=== PATIENT | female | born 1990 | race American Indian/Alaskan Native ===

== ENCOUNTER 2019-01-23 08:17 | Emergency (ER) | payer OTHER ==
[2019-01-23 08:28] VITALS: BP 148/85
--- NOTE | 2019-01-23 08:53 | Emergency Department Report ---
ED Female HPI - General Chief complaint: Urogenital-Female Stated complaint: DISCOMFORT Time Seen by Provider: 01/23/19 08:45 Source: patient Mode of arrival: Ambulatory Limitations: No Limitations - History of Present Illness Initial comments: This is a 28-year-old female nontoxic, well nourished in appearance, no acute signs of distress presents to the ED with c/o of vaginal itching and irritation. Patient denies any vaginal discharge. Patient stated she currently gets yeast infections when she is on different progesterones and hormonal therapy. Patient stated that this is typical symptoms for her. Patient denies any vaginal pain or swelling. Patient denies any vaginal ulcers or lesions. Patient denies any nausea, vomiting, chest pain, shortness of breathe, fever, chills, headache, back pain, numbness, tingling, stiff neck. Patient denies any urinary symptoms. Patient stated allergies to PCN. MD Complaint: other (vaginal itching and irritation) Radiation: non-radiating Severity scale (0 -10): 0 Consistency: constant Improves with: none Worsens with: none Associated Symptoms: denies other symptoms. denies: vaginal discharge, vaginal bleeding, abdominal pain, nausea/vomiting, fever/chills, headaches, loss of appetite, dysuria, hematuria, rash, seizure, shortness of breath, syncope, weakness - Related Data Previous Rx's Medication Instructions Recorded Last Taken Type Fluconazole [Diflucan TAB] 150 mg PO ONCE #1 tablet 01/23/19 Unknown Rx metroNIDAZOLE [Flagyl] 500 mg PO Q12HR #14 tab 01/23/19 Unknown Rx Allergies Allergy/AdvReac Type Severity Reaction Status Date / Time Penicillins Allergy Unknown Verified 01/23/19 08:20 ED Review of Systems ROS: Stated complaint: DISCOMFORT Other details as noted in HPI Constitutional: denies: chills, fever Eyes: denies: eye pain, eye discharge, vision change ENT: denies: ear pain, throat pain Respiratory: denies: cough, shortness of breath, wheezing Cardiovascular: denies: chest pain, palpitations Endocrine: no symptoms reported Gastrointestinal: denies: abdominal pain, nausea, diarrhea Genitourinary: denies: urgency, dysuria, discharge Musculoskeletal: denies: back pain, joint swelling, arthralgia Skin: denies: rash, lesions Neurological: denies: headache, weakness, paresthesias Psychiatric: denies: anxiety, depression Hematological/Lymphatic: denies: easy bleeding, easy bruising ED Past Medical Hx - Past Medical History Previous Medical History?: Yes Additional medical history: Abnormal uterine bleeding. - Surgical History Past Surgical History?: Yes Additional Surgical History: C section - Social History Smoking Status: Never Smoker Substance Use Type: None - Medications Home Medications: Home Medications Medication Instructions Recorded Confirmed Last Taken Type Fluconazole [Diflucan TAB] 150 mg PO ONCE #1 tablet 01/23/19 Unknown Rx metroNIDAZOLE [Flagyl] 500 mg PO Q12HR #14 tab 01/23/19 Unknown Rx ED Physical Exam - General Limitations: No Limitations - GI/Abdominal GI/Abdominal exam: Present: soft, normal bowel sounds. Absent: distended, tenderness, guarding, rebound, rigid, diminished bowel sounds - Extremities Exam Extremities exam: Present: normal inspection, full ROM - Back Exam Back exam: Present: normal inspection, full ROM - Neurological Exam Neurological exam: Present: alert, oriented X3 - Psychiatric Psychiatric exam: Present: normal affect, normal mood - Skin Skin exam: Present: warm, dry, intact, normal color. Absent: rash ED Course Vital Signs 01/23/19 08:26 Temperature 98.6 F Pulse Rate 77 Respiratory 16 Rate Blood Pressure 148/85 O2 Sat by Pulse 99 Oximetry - Reevaluation(s) Reevaluation #1: 01/23/19 08:51 Patient is speaking in full sentences with no signs of distress noted. ED Medical Decision Making - Medical Decision Making This is a 28-year-old female that presents with vaginal yeast. Patient is stable was examined by me. There is no abdominal tenderness. No pelvic pain. UA obtained. Patient was instructed to Follow-up with a primary care doctor in 3-5 days or if symptoms worsen and continue return to emergency room as soon as possible. At time of discharge, the patient does not seem toxic or ill in appearance. No acute signs of distress noted. Patient agrees to discharge treatment plan of care. No further questions noted by the patient. Critical care attestation.: If time is entered above; I have spent that time in minutes in the direct care of this critically ill patient, excluding procedure time. ED Disposition Clinical Impression: Vaginal yeast infection Disposition: - TO HOME OR SELFCARE Is pt being admited?: No Does the pt Need Aspirin: No Condition: Stable Instructions: Metronidazole (By mouth), Vulvovaginal Candidiasis (ED) Additional Instructions: Follow-up with a primary care doctor in 3-5 days or if symptoms worsen and continue return to emergency room as soon as possible. Prescriptions: Fluconazole [Diflucan TAB] 150 mg PO ONCE #1 tablet metroNIDAZOLE [Flagyl] 500 mg PO Q12HR #14 tab Referrals: PRIMARY CARE, [Referring] - 3-5 Days MARIA VICTORIA DANIELSON MD [Staff Physician] - 3-5 Days [facility] [Outside] - 3-5 Days [facility] [Outside] - 3-5 Days Forms: Work/School Release Form(ED)
[2019-01-23 09:15] LABS: Bilirubin,Urine NEG (Negative); Blood,Urine NEG (Negative); Color,Urine Yellow (Yellow); HCG Qualitative,Urine Negative (Negative); Mucus,Urine FEW /HPF; Protein,Urine <15 mg/dL mg/dL (Negative); Urobilinogen,Urine < 2.0 mg/dL (<2.0); WBC,Urine < 1.0 /HPF (0.0-6.0)
== END 2019-01-23 09:23 | disposition home or self-care (01) ==
LOC: ED 08:17
DX: B37.3 Candidiasis of vulva and vagina (principal); Z88.0 Allergy status to penicillin
CPT/HCPCS: 81001; 81025; 99283

== ENCOUNTER 2019-05-02 10:41 | Emergency (ER) | payer OTHER ==
[2019-05-02 11:01] VITALS: BP 138/83
[2019-05-02 12:12] LABS: Bilirubin,Urine NEG (Negative); Blood,Urine LG (Negative); Color,Urine Straw (Yellow); Protein,Urine <15 mg/dL mg/dL (Negative); Urobilinogen,Urine < 2.0 mg/dL (<2.0)
--- NOTE | 2019-05-02 12:35 | Emergency Department Report ---
ED Dysuria HPI - HPI Chief Complaint: Vaginal Bleeding Stated Complaint: VAGINAL BLEEDING Time Seen by Provider: 05/02/19 12:17 Severity: Mild Symptoms: Dysuria: No, Frequency: No, Suprapubic Pain: No, Flank Pain: No, Fev er: No, Hematuria: No, Abdominal Pain: No, Previous UTI's: No Other History: pT is a 28-year-old who comes to the ER today for acute on chronic dysfunctional vaginal bleeding. She was unable to get in with her [facility] so she came here for her Provera. She also has a history of anemia and she states when the bleeding is too heavy she gets symptomatic anemia. She denies any chest pain or shortness of breath. Vital signs are stable. She is taking no home medications. ED Review of Systems ROS: Stated complaint: VAGINAL BLEEDING Other details as noted in HPI Comment: All other systems reviewed and negative ED Past Medical Hx - Past Medical History Previous Medical History?: Yes Additional medical history: Abnormal uterine bleeding. - Surgical History Past Surgical History?: Yes Additional Surgical History: C section - Family History Family history: no significant - Social History Smoking Status: Never Smoker Substance Use Type: None - Medications Home Medications: Home Medications Medication Instructions Recorded Confirmed Last Taken Type Fluconazole [Diflucan TAB] 150 mg PO ONCE #1 tablet 01/23/19 Unknown Rx metroNIDAZOLE [Flagyl] 500 mg PO Q12HR #14 tab 01/23/19 Unknown Rx Cyclobenzaprine [Flexeril] 10 mg PO QHS PRN #20 tablet 03/28/19 Unknown Rx Ibuprofen [Motrin] 800 mg PO Q8HR #30 tablet 03/28/19 Unknown Rx medroxyPROGESTERone ACETATE 20 mg PO QDAY #20 tablet 05/02/19 Unknown Rx [Provera] Dysuria Exam - Exam General: Vital signs noted. No distress. Alert and acting appropriately. Exam: Yes Moist Mucous Membranes, No CVA Tenderness, No Abdominal Tenderness, No Rigidity or Guarding Exam: WDWN patient in NAD. VS per RN flow sheet. Alert and oriented to person, place and time. S1-S2. No S3 or S4. No systolic or diastolic murmur. No JVD. No pitting edema. Lungs clear to auscultation bilaterally anteriorly and posteriorly. Abdomen soft nontender bowel sounds X4. Moves all extremities well. Mood and affect appropriate. Labs: Lab Results 05/02/19 Range/Units Unknown Urine Color Straw (Yellow) Urine Turbidity Clear (Clear) Urine pH 6.0 (5.0-7.0) Ur Specific Baldwin 1.011 (1.003-1.030) Urine Protein <15 mg/dl (Negative) mg/dL Urine Glucose (UA) Neg (Negative) mg/dL Urine Ketones Neg (Negative) mg/dL Urine Blood Lg (Negative) Urine Nitrite Neg (Negative) Urine Bilirubin Neg (Negative) Urine Urobilinogen < 2.0 (<2.0) mg/dL Ur Leukocyte Esterase Neg (Negative) Urine WBC (Auto) 3.0 (0.0-6.0) /HPF Urine RBC (Auto) 72.0 (0.0-6.0) /HPF U Epithel Cells (Auto) < 1.0 (0-13.0) /HPF ED Course Vital Signs 05/02/19 10:59 Temperature 97.9 F Pulse Rate 106 H Respiratory 18 Rate Blood Pressure 138/83 [Left] O2 Sat by Pulse 98 Oximetry ED Medical Decision Making - Lab Data Result diagrams: 05/02/19 12:19 05/02/19 12:19 - Medical Decision Making Lab Results 05/02/19 05/02/19 05/02/19 Range/Units 12:19 12:19 Unknown WBC 8.0 (4.5-11.0) K/mm3 RBC 3.98 (3.65-5.03) M/mm3 Hgb 9.6 L (10.1-14.3) gm/dl Hct 30.1 L (30.3-42.9) % MCV 76 L (79-97) fl MCH 24 L (28-32) pg MCHC 32 (30-34) % RDW 21.0 H (13.2-15.2) % Plt Count 294 (140-440) K/mm3 Sodium 137 (137-145) mmol/L Potassium 3.8 (3.6-5.0) mmol/L Chloride 101.3 (98-107) mmol/L Carbon Dioxide 25 (22-30) mmol/L Anion Gap 15 mmol/L BUN 8 (7-17) mg/dL Creatinine 0.9 (0.7-1.2) mg/dL Estimated GFR > 60 ml/min BUN/Creatinine Ratio 9 % Glucose 78 (65-100) mg/dL Calcium 8.6 (8.4-10.2) mg/dL Urine Color Straw (Yellow) Urine Turbidity Clear (Clear) Urine pH 6.0 (5.0-7.0) Ur Specific Baldwin 1.011 (1.003-1.030) Urine Protein <15 mg/dl (Negative) mg/dL Urine Glucose (UA) Neg (Negative) mg/dL Urine Ketones Neg (Negative) mg/dL Urine Blood Lg (Negative) Urine Nitrite Neg (Negative) Urine Bilirubin Neg (Negative) Urine Urobilinogen < 2.0 (<2.0) mg/dL Ur Leukocyte Esterase Neg (Negative) Urine WBC (Auto) 3.0 (0.0-6.0) /HPF Urine RBC (Auto) 72.0 (0.0-6.0) /HPF U Epithel Cells (Auto) < 1.0 (0-13.0) /HPF Vital Signs 05/02/19 10:59 Temperature 97.9 F Pulse Rate 106 H Respiratory 18 Rate Blood Pressure 138/83 [Left] O2 Sat by Pulse 98 Oximetry CBC HGB STABLE HR ON EXAM 90 BP NORMAL A/C CONDITION PT KNOWS HER DOSE OF PROVERA FOR SHE HAS HAD IN THE PAST. RX FOR 10 DAYS. DC HOME WITH DC PLAN OF CARE AND OBGYN FOLLOW UP. Critical care attestation.: If time is entered above; I have spent that time in minutes in the direct care of this critically ill patient, excluding procedure time. ED Disposition Clinical Impression: DUB (dysfunctional uterine bleeding) Disposition: DC-01 TO HOME OR SELFCARE Is pt being admited?: No Does the pt Need Aspirin: No Condition: Stable Instructions: Menorrhagia (ED) Additional Instructions: DIET TOLERATED MEDS ORDERED TODAY IN ER FOLLOW INSTRUCTIONS ON THE BOTTLE FOLLOW UP WITH OBGYN FOR FURTHER EVALUATION OF YOUR BLEEDING ACTIVITY TOLERATED MOTRIN OR TYLENOL FOR PAIN OR FEVER RETURN TO THE ER FOR WORSENING SYMPTOMS NOT RELIEVED BY YOUR MEDICATIONS. Prescriptions: medroxyPROGESTERone ACETATE [Provera] 20 mg PO QDAY #20 tablet Referrals: JENNIFER GARCIA MD [Staff Physician] - 3-5 Days Time of Disposition: 13:16
[2019-05-02 12:42] LABS: Hematocrit 30.1 % (30.3-42.9); Hemoglobin 9.6 gm/dl (10.1-14.3); Mean Corpuscular HGB Conc 32 % (30-34); Mean Corpuscular Volume 76 fl (79-97); Platelet Count 294 K/mm3 (140-440); Red Blood Count 3.98 M/mm3 (3.65-5.03)
[2019-05-02 12:54] LABS: BUN/Creatinine Ratio 9; Blood Urea Nitrogen 8 mg/dL (7-17); Calcium 8.6 mg/dL (8.4-10.2); Hemolysis Index 6
== END 2019-05-02 13:30 | disposition home or self-care (01) ==
LOC: ED 10:41
DX: N93.8 Other specified abnormal uterine and vaginal bleeding (principal); Z88.0 Allergy status to penicillin
CPT/HCPCS: 36415; 80048; 81001; 85027

== ENCOUNTER 2019-05-22 05:52 | Emergency (ER) | payer MEDICAID, OTHER ==
[2019-05-22 07:15] LABS: Basophils # (Auto) 0.1 K/mm3 (0.0-0.1); Eosinophils # (Auto) 0.3 K/mm3 (0.0-0.4); Eosinophils % (Auto) 3.3 % (0.0-4.3); Hematocrit 28.5 % (30.3-42.9); Hemoglobin 9.1 gm/dl (10.1-14.3); Lymphocytes # (Auto) 1.9 K/mm3 (1.2-5.4); Lymphocytes % (Auto) 25.4 % (13.4-35.0); Mean Corpuscular HGB Conc 32 % (30-34); Mean Corpuscular Volume 76 fl (79-97); Monocytes # (Auto) 0.7 K/mm3 (0.0-0.8); Monocytes % (Auto) 9.2 % (0.0-7.3); Platelet Count 313 K/mm3 (140-440); Red Blood Count 3.78 M/mm3 (3.65-5.03); Red Cell Distribution Width 19.4 % (13.2-15.2)
[2019-05-22] MEDS ORDERED: TORADOL IM ONE (07:36)
--- NOTE | 2019-05-22 07:40 | Emergency Department Report ---
ED Female HPI - General Chief complaint: Vaginal Bleeding Stated complaint: UTERINE BLEEDING/PAIN Time Seen by Provider: 05/22/19 07:08 Source: patient Mode of arrival: Ambulatory Limitations: No Limitations - History of Present Illness Initial comments: 28-year-old -Stateless female presents to the emergency room for uterine bleeding and pain for 1 year as per patient. Patient reports the last few days pain has increased and bleeding has returned. Patient reports that she is approximately 8 tampons and a day and reports she used 4 tampons today. Patient reports that her last period was 05/15/2019. Patient was seen here for the same complaint in 05/02/2019 and was referred to Dr. Sweeney [facility] provider. Patient reports that she never followed up as she does not have insurance. Patient complains of pelvic cramping. She denies any nausea vomiting no fevers no chills no shortness of breath or chest pain. She does have a past medical history of anemia and dysfunctional uterine bleeding. MD Complaint: vaginal bleeding, pelvic pain Onset/Timin -: year(s) Location: suprapubic Severity scale (0 -10): 8 Quality: cramping Consistency: intermittent Improves with: none Worsens with: none Are you Now?: No Last Menstrual Period: 05/15/19 EDC: 02/19/20 - Related Data Previous Rx's Medication Instructions Recorded Last Taken Type Fluconazole [Diflucan TAB] 150 mg PO ONCE #1 tablet 01/23/19 Unknown Rx metroNIDAZOLE [Flagyl] 500 mg PO Q12HR #14 tab 01/23/19 Unknown Rx Cyclobenzaprine [Flexeril] 10 mg PO QHS PRN #20 tablet 03/28/19 Unknown Rx medroxyPROGESTERone ACETATE 20 mg PO QDAY #20 tablet 05/02/19 Unknown Rx [Provera] Ibuprofen [Motrin 800 MG tab] 800 mg PO Q8HR #30 tablet 05/22/19 Unknown Rx medroxyPROGESTERone ACETATE 10 mg PO QDAY 10 Days #10 tablet 05/22/19 Unknown Rx [Provera] Allergies Allergy/AdvReac Type Severity Reaction Status Date / Time Penicillins Allergy Unknown Verified 03/28/19 13:33 ED Review of Systems ROS: Stated complaint: UTERINE BLEEDING/PAIN Other details as noted in HPI Comment: All other systems reviewed and negative ED Past Medical Hx - Past Medical History Previous Medical History?: Yes Additional medical history: Abnormal uterine bleeding. - Surgical History Past Surgical History?: Yes Additional Surgical History: C section - Social History Smoking Status: Never Smoker Substance Use Type: None - Medications Home Medications: Home Medications Medication Instructions Recorded Confirmed Last Taken Type Fluconazole [Diflucan TAB] 150 mg PO ONCE #1 tablet 01/23/19 Unknown Rx metroNIDAZOLE [Flagyl] 500 mg PO Q12HR #14 tab 01/23/19 Unknown Rx Cyclobenzaprine [Flexeril] 10 mg PO QHS PRN #20 tablet 03/28/19 Unknown Rx medroxyPROGESTERone ACETATE 20 mg PO QDAY #20 tablet 05/02/19 Unknown Rx [Provera] Ibuprofen [Motrin 800 MG tab] 800 mg PO Q8HR #30 tablet 05/22/19 Unknown Rx medroxyPROGESTERone ACETATE 10 mg PO QDAY 10 Days #10 tablet 05/22/19 Unknown Rx [Provera] ED Physical Exam - General Limitations: No Limitations General appearance: alert, in no apparent distress - Head Head exam: Present: atraumatic, normocephalic - Eye Eye exam: Present: normal appearance - ENT ENT exam: Present: mucous membranes moist - Neck Neck exam: Present: normal inspection - Respiratory Respiratory exam: Present: normal lung sounds bilaterally. Absent: respiratory distress - Cardiovascular Cardiovascular Exam: Present: regular rate, normal rhythm. Absent: systolic murmur, diastolic murmur, rubs, gallop - GI/Abdominal GI/Abdominal exam: Present: soft, normal bowel sounds - Extremities Exam Extremities exam: Present: normal inspection - Back Exam Back exam: Present: normal inspection - Neurological Exam Neurological exam: Present: alert, oriented X3 - Psychiatric Psychiatric exam: Present: normal affect, normal mood - Skin Skin exam: Present: warm, dry, intact, normal color. Absent: rash ED Course Vital Signs 05/22/19 06:00 Temperature 98.3 F Pulse Rate 88 Respiratory 18 Rate Blood Pressure 157/84 [Right] O2 Sat by Pulse 99 Oximetry ED Medical Decision Making - Lab Data Result diagrams: 05/22/19 06:58 05/22/19 06:58 - Radiology Data Radiology results: report reviewed Patient: KEVIN JENKINS MR#: [id number] : 1990 Acct:[id number] Age/Sex: 28 / F ADM Date: 05/22/19 Loc: ED Attending Dr: Ordering Physician: MAKI IYER Date of Service: 05/22/19 Procedure(s): US transvaginal Accession Number(s): [id number] cc: MAKI IYER ULTRASOUND PELVIC COMPLETE ULTRASOUND TRANSVAGINAL HISTORY: pelvic pain. TECHNIQUE: Grayscale transabdominal and transvaginal imaging with color Doppler interrogation. COMPARISON: None at this facility. FINDINGS: The uterus is anteverted. The uterus measures 9.5 x 4.7 x 5.1 cm. There is a hypoechoic area in the uterine fundus measuring 2.0 x 1.7 x 2.9 cm which may represent an intramural fibroid. The endometrial stripe is unremarkable measuring 7.1 mm. Normal cervix. The right ovary measures 2.8 x 1.6 x 2.4 cm. The left ovary measures 2.9 x 1.9 x 1.8 cm. Normal follicles are identified bilaterally. Color Doppler imaging demonstrates perfusion to both adnexa. No pelvic fluid collection. IMPRESSION: Probable fundal fibroid as described. Otherwise, unremarkable pelvic ultrasounds. Signer Name: Ernst Lyon Jr, MD Signed: 05/22/2019 8:57 AM Workstation Name: [id number] Transcribed By: TTR Dictated By: ERNST LYON JR, MD Electronically Authenticated By: ERNST LYON JR, MD Signed Date/Time: 05/22/19 0857 DD/ 0852 TD/TT: Critical care attestation.: If time is entered above; I have spent that time in minutes in the direct care of this critically ill patient, excluding procedure time. ED Disposition Clinical Impression: Dysfunctional uterine bleeding, Fibroids, intramural, Anemia Disposition: DC-01 TO HOME OR SELFCARE Is pt being admited?: No Does the pt Need Aspirin: No Condition: Stable Instructions: Dysfunctional Uterine Bleeding (ED), Uterine Fibroids (ED) Additional Instructions: Take medication as prescribed. It's very important for you to follow up with an [facility] provider I have listed several below for your convenience. Prescriptions: Ibuprofen [Motrin 800 MG tab] 800 mg PO Q8HR #30 tablet medroxyPROGESTERone ACETATE [Provera] 10 mg PO QDAY 10 Days #10 tablet Referrals: TABBY HARRISON MD [Primary Care Provider] - 3-5 Days [facility] [Provider Group] - 3-[address] [facility] [Provider Group] - 3-5 Days [facility] [Provider Group] - 3-[address] [facility] [Provider Group] - 3-5 Days Forms: Work/School Release Form(ED)
[2019-05-22 07:47] VITALS: BP 157/84
[2019-05-22 08:14] LABS: Alanine Aminotransferase 13 units/L (7-56); Albumin 3.4 g/dL (3.9-5); BUN/Creatinine Ratio 10; Blood Urea Nitrogen 8 mg/dL (7-17); Calcium 8.6 mg/dL (8.4-10.2); Hemolysis Index 14
--- NOTE | 2019-05-22 09:01 | Ultrasound Report ---
ULTRASOUND PELVIC COMPLETE ULTRASOUND TRANSVAGINAL HISTORY: pelvic pain. TECHNIQUE: Grayscale transabdominal and transvaginal imaging with color Doppler interrogation. COMPARISON: None at this facility. FINDINGS: The uterus is anteverted. The uterus measures 9.5 x 4.7 x 5.1 cm. There is a hypoechoic are a in the uterine fundus measuring 2.0 x 1.7 x 2.9 cm which may represent an intramural fibroid. The e ndometrial stripe is unremarkable measuring 7.1 mm. Normal cervix. The right ovary measures 2.8 x 1.6 x 2.4 cm. The left ovary measures 2.9 x 1.9 x 1.8 cm. Normal folli cles are identified bilaterally. Color Doppler imaging demonstrates perfusion to both adnexa. No pelvic fluid collection. IMPRESSION: Probable fundal fibroid as described. Otherwise, unremarkable pelvic ultrasounds. Signer Name: Ernst Lyon Jr, MD Signed: 05/22/2019 8:57 AM Workstation Name: [id number]
== END 2019-05-22 09:32 | disposition home or self-care (01) ==
LOC: ED 05:52
DX: N93.8 Other specified abnormal uterine and vaginal bleeding (principal); D25.1 Intramural leiomyoma of uterus; D64.9 Anemia, unspecified; Z79.899 Other long term (current) drug therapy; Z88.0 Allergy status to penicillin
CPT/HCPCS: 36415; 76830; 76856; 80053; 84703; 85025; 86900; 86901; 96372; 99284; J1885

== ENCOUNTER 2019-07-02 12:15 | Emergency (ER) | payer OTHER ==
--- NOTE | 2019-07-02 12:32 | Emergency Department Report ---
Blank Doc - Documentation Documentation: This is a 29-year-old female that presents with vaginal discharge with history of chronic yeast infections. This initial assessment/diagnostic orders/clinical plan/treatment(s) is/are subject to change based on patient's health status, clinical progression and re- assessment by fellow clinical providers in the ED. Further treatment and workup at subsequent clinical providers discretion. Patient/guardians urged not to elope from the ED as their condition may be serious if not clinically assessed and managed. Initial orders include: 1- Patient sent to [facility] for further evaluation and treatment 2- pelvic exam to be done
[2019-07-02 12:37] VITALS: BP 153/82
[2019-07-02 13:10] LABS: Bacteria,Urine 1+ /HPF (Negative); Bilirubin,Urine NEG (Negative); Blood,Urine NEG (Negative); Color,Urine Yellow (Yellow); Mucus,Urine FEW /HPF; Protein,Urine <15 mg/dL mg/dL (Negative); Urobilinogen,Urine < 2.0 mg/dL (<2.0)
[2019-07-02 13:12] LABS: HCG Qualitative,Urine Negative (Negative)
--- NOTE | 2019-07-02 13:42 | Emergency Department Report ---
ED Female HPI - General Chief complaint: Urogenital-Female Stated complaint: YEAST INFECTION Time Seen by Provider: 07/02/19 12:30 Source: patient Mode of arrival: Ambulatory Limitations: No Limitations - History of Present Illness Initial comments: Patient is 29 years old female with no significant past medical history. Patient presented to the ER complaining of vaginal discharge, whitish in nature, itchy. Patient stated that she had multiple history of yeast infection because she is taking progesterone. Patient stated that her symptoms is similar to what she had before for which she was cleared by Kuldeeplucanuradha. Denied any fever or chills. No pelvic pain. MD Complaint: vaginal discharge - Related Data Previous Rx's Medication Instructions Recorded Last Taken Type Fluconazole [Diflucan TAB] 150 mg PO ONCE #1 tablet 01/23/19 Unknown Rx metroNIDAZOLE [Flagyl] 500 mg PO Q12HR #14 tab 01/23/19 Unknown Rx Cyclobenzaprine [Flexeril] 10 mg PO QHS PRN #20 tablet 03/28/19 Unknown Rx medroxyPROGESTERone ACETATE 20 mg PO QDAY #20 tablet 05/02/19 Unknown Rx [Provera] Ibuprofen [Motrin 800 MG tab] 800 mg PO Q8HR #30 tablet 05/22/19 Unknown Rx medroxyPROGESTERone ACETATE 10 mg PO QDAY 10 Days #10 tablet 05/22/19 Unknown Rx [Provera] Allergies Allergy/AdvReac Type Severity Reaction Status Date / Time Penicillins Allergy Unknown Verified 03/28/19 13:33 ED Review of Systems ROS: Stated complaint: YEAST INFECTION Other details as noted in HPI Comment: All other systems reviewed and negative Constitutional: denies: chills, fever Respiratory: denies: cough, shortness of breath Cardiovascular: denies: chest pain ED Past Medical Hx - Past Medical History Previous Medical History?: Yes Additional medical history: Abnormal uterine bleeding. - Surgical History Past Surgical History?: Yes Additional Surgical History: C section x 2 - Social History Smoking Status: Never Smoker - Medications Home Medications: Home Medications Medication Instructions Recorded Confirmed Last Taken Type Fluconazole [Diflucan TAB] 150 mg PO ONCE #1 tablet 01/23/19 Unknown Rx metroNIDAZOLE [Flagyl] 500 mg PO Q12HR #14 tab 01/23/19 Unknown Rx Cyclobenzaprine [Flexeril] 10 mg PO QHS PRN #20 tablet 03/28/19 Unknown Rx medroxyPROGESTERone ACETATE 20 mg PO QDAY #20 tablet 05/02/19 Unknown Rx [Provera] Ibuprofen [Motrin 800 MG tab] 800 mg PO Q8HR #30 tablet 05/22/19 Unknown Rx medroxyPROGESTERone ACETATE 10 mg PO QDAY 10 Days #10 tablet 05/22/19 Unknown Rx [Provera] ED Physical Exam - General Limitations: No Limitations General appearance: alert, in no apparent distress - Head Head exam: Present: atraumatic, normocephalic, normal inspection - Eye Eye exam: Present: normal appearance, PERRL - ENT ENT exam: Present: normal exam, normal orophraynx, mucous membranes moist - Neck Neck exam: Present: normal inspection, full ROM. Absent: tenderness, meningismus, lymphadenopathy, thyromegaly - Respiratory Respiratory exam: Present: normal lung sounds bilaterally - Cardiovascular Cardiovascular Exam: Present: regular rate, normal rhythm, normal heart sounds - GI/Abdominal GI/Abdominal exam: Present: soft, normal bowel sounds. Absent: distended, tenderness, guarding, rebound, rigid, organomegaly, mass, bruit, pulsatile mass, hernia - Extremities Exam Extremities exam: Present: normal inspection, full ROM, normal capillary refill. Absent: pedal edema, calf tenderness - Back Exam Back exam: Present: normal inspection, full ROM. Absent: CVA tenderness (R), CVA tenderness (L), muscle spasm - Neurological Exam Neurological exam: Present: alert, oriented X3, CN II-XII intact, normal gait, reflexes normal - Psychiatric Psychiatric exam: Present: normal mood - Skin Skin exam: Present: warm, intact, normal color ED Course Vital Signs 07/02/19 12:31 Temperature 98.5 F Pulse Rate 85 Respiratory 18 Rate Blood Pressure 153/82 O2 Sat by Pulse 100 Oximetry Critical care attestation.: If time is entered above; I have spent that time in minutes in the direct care of this critically ill patient, excluding procedure time. ED Disposition Clinical Impression: Vaginal candidiasis Disposition: - TO HOME OR SELFCARE Is pt being admited?: No Condition: Stable Instructions: Vulvovaginal Candidiasis (ED) Referrals: TABBY HARRISON MD [Primary Care Provider] - 3-5 Days
== END 2019-07-02 13:56 | disposition home or self-care (01) ==
LOC: ED 12:15
DX: B37.3 Candidiasis of vulva and vagina (principal); Z88.0 Allergy status to penicillin
CPT/HCPCS: 81001; 81025

== ENCOUNTER 2019-12-25 07:43 | Emergency (ER) | payer SELFPAY ==
[2019-12-25 07:52] VITALS: BP 162/94
--- NOTE | 2019-12-25 08:37 | Emergency Department Report ---
HPI - General Chief Complaint: Vaginal Bleeding Time Seen by Provider: 12/25/19 08:17 - [facility] HPI: Room 17 The patient is a 29-year-old female present with a chief complaint of vaginal bleeding. Patient has a history of abnormal uterine bleeding and states for the past 3-5 weeks she has had daily vaginal bleeding. Patient states she is gone through 5 pads and 5 tampons daily. Patient admits to lower abdominal pain described as pelvic cramping. Patient states she does not have an [facility] yet. The patient states she came to the hospital to receive Provera or similar medication ED Past Medical Hx - Past Medical History Previous Medical History?: Yes Additional medical history: Abnormal uterine bleeding., Uterine fibroid - Surgical History Past Surgical History?: Yes Additional Surgical History: C section x 2 - Family History Family history: no significant - Social History Smoking Status: Never Smoker Substance Use Type: None (Denies illicit drug use), Alcohol (Occasional) - Medications Home Medications: Home Medications Medication Instructions Recorded Confirmed Last Taken Type Fluconazole [Diflucan TAB] 150 mg PO ONCE #1 tablet 01/23/19 Unknown Rx metroNIDAZOLE [Flagyl] 500 mg PO Q12HR #14 tab 01/23/19 Unknown Rx Cyclobenzaprine [Flexeril] 10 mg PO QHS PRN #20 tablet 03/28/19 Unknown Rx medroxyPROGESTERone ACETATE 20 mg PO QDAY #20 tablet 05/02/19 Unknown Rx [Provera] Ibuprofen [Motrin 800 MG tab] 800 mg PO Q8HR #30 tablet 05/22/19 Unknown Rx medroxyPROGESTERone ACETATE 10 mg PO QDAY 10 Days #10 tablet 05/22/19 Unknown Rx [Provera] Fluconazole [Diflucan TAB] 100 mg PO BID #2 tablet 07/02/19 Unknown Rx Ibuprofen [Motrin 800 MG tab] 800 mg PO Q8HR PRN #20 tablet 12/25/19 Unknown Rx medroxyPROGESTERone ACETATE 10 mg PO QDAY #10 tablet 12/25/19 Unknown Rx [Provera] ED Review of Systems ROS: Stated complaint: PROLONGED MENSTRAL/CHRONIC ISSUE Other details as noted in HPI Constitutional: no symptoms reported Eyes: denies: eye pain ENT: denies: throat pain Respiratory: no symptoms reported Genitourinary: abnormal menses Physical Exam - Physical Exam Vital Signs: Vital Signs 12/25/19 07:46 Temperature 98.2 F Pulse Rate 97 H Respiratory 16 Rate Blood Pressure 162/94 O2 Sat by Pulse 98 Oximetry Physical Exam: GEN: WD WN female lying on stretcher in NAD HEENT: NCAT, EOMI NECK: trachea midline PULM: CTA bilat. No resp distress noted CV: rrr no m/r/g ABD: s/nt/nd SKIN: no diaphoresis NEURO: GCS 15 MUSCULOSKELETAL: No evidence of acute injury ED Course Vital Signs 12/25/19 07:46 Temperature 98.2 F Pulse Rate 97 H Respiratory 16 Rate Blood Pressure 162/94 O2 Sat by Pulse 98 Oximetry ED Medical Decision Making - Lab Data Result diagrams: 12/25/19 08:35 12/25/19 08:35 Laboratory Tests 12/25/19 12/25/19 12/25/19 08:35 08:35 08:35 WBC 5.2 RBC 4.20 Hgb 10.1 Hct 31.7 MCV 76 L MCH 24 L MCHC 32 RDW 18.7 H Plt Count 263 Lymph % (Auto) 25.6 [place] % (Auto) 12.2 H Eos % (Auto) 6.0 H Baso % (Auto) 0.9 Lymph # 1.3 [place] # 0.6 Eos # 0.3 Baso # 0.0 Seg Neutrophils % 55.3 Seg Neutrophils # 2.9 Sodium 136 L Potassium 4.5 Chloride 104.1 Carbon Dioxide 19 L Anion Gap 17 BUN 11 Creatinine 0.7 Estimated GFR > 60 BUN/Creatinine Ratio 16 Glucose 90 Calcium 8.5 HCG, Qual Negative Blood Type Antibody Screen 12/25/19 08:35 WBC RBC Hgb Hct MCV MCH MCHC RDW Plt Count Lymph % (Auto) [place] % (Auto) Eos % (Auto) Baso % (Auto) Lymph # [place] # Eos # Baso # Seg Neutrophils % Seg Neutrophils # Sodium Potassium Chloride Carbon Dioxide Anion Gap BUN Creatinine Estimated GFR BUN/Creatinine Ratio Glucose Calcium HCG, Qual Blood Type O POSITIVE Antibody Screen Negative - Radiology Data Radiology results: report reviewed (Pelvic ultrasound), image reviewed (Pelvic ultrasound) Findings [facility] [address] [place] [address] Ultrasound Report Signed Patient: KEVIN JENKINS MR#: [id number] : 1990 Acct:[id number] Age/Sex: 29 / F ADM Date: 12/25/19 Loc: ED Attending Dr: Ordering Physician: NANCI HUTCHINS MD Date of Service: 12/25/19 Procedure(s): US transvaginal Accession Number(s): [id number] cc: NANCI HUTCHINS MD Pelvic ultrasound transabdominal and transvaginal. HISTORY: Menorrhagia. FINDINGS: Uterus measures 8.65 4.5 x 5.7 cm. An anterior fibroid measures 2.3 cm. The endometrial stripe is not thickened measuring 7.3 mm. Right ovary measures 2.8 x 2.1 x 2 cm. Left ovary measures 2.5 x 1.9 x 1.8 cm. Both ovaries demonstrate appropriate flow. Negative for adnexal mass or fluid. A small amount of free fluid is noted. IMPRESSION: 1. Anterior uterine fibroid. 2. Small amount of free fluid. Signer Name: Zach Miller MD Signed: 12/25/2019 9:39 AM Workstation Name: [id number] Transcribed By: ES Dictated By: Zach Miller MD Electronically Authenticated By: Zach Miller MD Signed Date/Time: 12/25/19938 DD/ 7 TD/TT: - Differential Diagnosis Menorrhagia, metromenorrhagia Critical care attestation.: If time is entered above; I have spent that time in minutes in the direct care of this critically ill patient, excluding procedure time. ED Disposition Clinical Impression: Menorrhagia Disposition: - TO HOME OR SELFCARE Is pt being admited?: No Does the pt Need Aspirin: No Condition: Stable Instructions: Menorrhagia (ED) Prescriptions: Ibuprofen [Motrin 800 MG tab] 800 mg PO Q8HR PRN #20 tablet PRN Reason: Pain, Moderate (4-6) medroxyPROGESTERone ACETATE [Provera] 10 mg PO QDAY #10 tablet Referrals: [facility] [Provider Group] - 3-5 Days Time of Disposition: 10:01
[2019-12-25 08:48] LABS: Basophils % (Auto) 0.9 % (0.0-1.8); Eosinophils # (Auto) 0.3 K/mm3 (0.0-0.4); Hematocrit 31.7 % (30.3-42.9); Hemoglobin 10.1 gm/dl (10.1-14.3); Lymphocytes # (Auto) 1.3 K/mm3 (1.2-5.4); Lymphocytes % (Auto) 25.6 % (13.4-35.0); Mean Corpuscular HGB Conc 32 % (30-34); Mean Corpuscular Volume 76 fl (79-97); Monocytes # (Auto) 0.6 K/mm3 (0.0-0.8); Monocytes % (Auto) 12.2 % (0.0-7.3); Platelet Count 263 K/mm3 (140-440); Red Cell Distribution Width 18.7 % (13.2-15.2)
[2019-12-25 09:06] LABS: BUN/Creatinine Ratio 16; Blood Urea Nitrogen 11 mg/dL (7-17); Calcium 8.5 mg/dL (8.4-10.2); Hemolysis Index 8
--- NOTE | 2019-12-25 09:44 | Ultrasound Report ---
Pelvic ultrasound transabdominal and transvaginal. HISTORY: Menorrhagia. FINDINGS: Uterus measures 8.65 4.5 x 5.7 cm. An anterior fibroid measures 2.3 cm. The endometrial str ipe is not thickened measuring 7.3 mm. Right ovary measures 2.8 x 2.1 x 2 cm. Left ovary measures 2.5 x 1.9 x 1.8 cm. Both ovaries demonstra te appropriate flow. Negative for adnexal mass or fluid. A small amount of free fluid is noted. IMPRESSION: 1. Anterior uterine fibroid. 2. Small amount of free fluid. Signer Name: Zach Miller MD Signed: 12/25/2019 9:39 AM Workstation Name: [id number]
== END 2019-12-25 10:33 | disposition home or self-care (01) ==
LOC: ED 07:43
DX: N92.0 Excessive and frequent menstruation with regular cycle (principal); Z88.0 Allergy status to penicillin; Z79.899 Other long term (current) drug therapy
CPT/HCPCS: 36415; 76830; 76856; 80048; 84703; 85025; 86850; 86900; 86901

== ENCOUNTER 2020-05-09 04:53 | Emergency (ER) | payer BC ==
[2020-05-09 05:02] VITALS: BP 147/104
[2020-05-09] MEDS ORDERED: HYDROcodone/ACETAMINOPHEN 5-325 MG TAB PO ONE (05:32)
[2020-05-09] MEDS ORDERED: HYDROcodone/ACETAMINOPHEN 5-325 MG TAB ONE (05:34)
[2020-05-09] MEDS ORDERED: ACETAMINOPHEN 500 MG TAB PO ONE (06:28)
[2020-05-09] MEDS ORDERED: CLINDAMYCIN 300 MG CAP PO ONE (06:28)
--- NOTE | 2020-05-09 06:33 | Emergency Department Report ---
ED ENT HPI - General Chief complaint: Earache Stated complaint: RT SIDE EAR/JAW PAIN Time Seen by Provider: 05/09/20 06:27 Source: patient Mode of arrival: Ambulatory Limitations: No Limitations - History of Present Illness Initial comments: Patient is a 29-year-old -[place] female who presents for dental pain x2 days. Pain is described at 7/10 aching right lower. There is no facial or gum swelling. There is no trismus, or sore throat. Patient is tolerating p.o. intake without problems. Has a dentist appointment in 3 days. MD complaint: tooth pain Onset/Timin -: days(s) Location: tooth # (29) Severity: moderate Severity scale (0 -10): 7 Quality: aching Consistency: constant Improves with: NSAID Worsens with: eating Context- Dental: history of dental caries, poor dental care Associated Symptoms: toothache. denies: gum swelling, sore throat, tinnitus, hearing loss - Related Data Previous Rx's Medication Instructions Recorded Last Taken Type Fluconazole (Nf) [Diflucan TAB] 150 mg PO ONCE #1 tablet 01/23/19 Unknown Rx metroNIDAZOLE [Flagyl] 500 mg PO Q12HR #14 tab 01/23/19 Unknown Rx Cyclobenzaprine [Flexeril] 10 mg PO QHS PRN #20 tablet 03/28/19 Unknown Rx medroxyPROGESTERone ACETATE 20 mg PO QDAY #20 tablet 05/02/19 Unknown Rx [Provera] Ibuprofen [Motrin 800 MG tab] 800 mg PO Q8HR #30 tablet 05/22/19 Unknown Rx medroxyPROGESTERone ACETATE 10 mg PO QDAY 10 Days #10 tablet 05/22/19 Unknown Rx [Provera] Fluconazole [Diflucan TAB] 100 mg PO BID #2 tablet 07/02/19 Unknown Rx Ibuprofen [Motrin 800 MG tab] 800 mg PO Q8HR PRN #20 tablet 12/25/19 Unknown Rx medroxyPROGESTERone ACETATE 10 mg PO QDAY #10 tablet 12/25/19 Unknown Rx [Provera] Chlorhexidine Mouthwash [Peridex] 15 ml MM BID #1 bottle 05/09/20 Unknown Rx Clindamycin [Clindamycin CAP] 300 mg PO Q8H 7 Days #21 cap 05/09/20 Unknown Rx traMADoL [Ultram] 50 mg PO Q6HR PRN #12 tablet 05/09/20 Unknown Rx Allergies Allergy/AdvReac Type Severity Reaction Status Date / Time Penicillins Allergy Unknown Verified 03/28/19 13:33 ED Dental HPI - General Chief complaint: Earache Stated complaint: RT SIDE EAR/JAW PAIN Time Seen by Provider: 05/09/20 06:27 Source: patient Mode of arrival: Ambulatory Limitations: No Limitations - Related Data Previous Rx's Medication Instructions Recorded Last Taken Type Fluconazole (Nf) [Diflucan TAB] 150 mg PO ONCE #1 tablet 01/23/19 Unknown Rx metroNIDAZOLE [Flagyl] 500 mg PO Q12HR #14 tab 01/23/19 Unknown Rx Cyclobenzaprine [Flexeril] 10 mg PO QHS PRN #20 tablet 03/28/19 Unknown Rx medroxyPROGESTERone ACETATE 20 mg PO QDAY #20 tablet 05/02/19 Unknown Rx [Provera] Ibuprofen [Motrin 800 MG tab] 800 mg PO Q8HR #30 tablet 05/22/19 Unknown Rx medroxyPROGESTERone ACETATE 10 mg PO QDAY 10 Days #10 tablet 05/22/19 Unknown Rx [Provera] Fluconazole [Diflucan TAB] 100 mg PO BID #2 tablet 07/02/19 Unknown Rx Ibuprofen [Motrin 800 MG tab] 800 mg PO Q8HR PRN #20 tablet 12/25/19 Unknown Rx medroxyPROGESTERone ACETATE 10 mg PO QDAY #10 tablet 12/25/19 Unknown Rx [Provera] Chlorhexidine Mouthwash [Peridex] 15 ml MM BID #1 bottle 05/09/20 Unknown Rx Clindamycin [Clindamycin CAP] 300 mg PO Q8H 7 Days #21 cap 05/09/20 Unknown Rx traMADoL [Ultram] 50 mg PO Q6HR PRN #12 tablet 05/09/20 Unknown Rx Allergies Allergy/AdvReac Type Severity Reaction Status Date / Time Penicillins Allergy Unknown Verified 03/28/19 13:33 ED Review of Systems ROS: Stated complaint: RT SIDE EAR/JAW PAIN Other details as noted in HPI Constitutional: denies: chills, fever Eyes: denies: eye pain, eye discharge, vision change ENT: dental pain Respiratory: denies: cough, shortness of breath, wheezing Cardiovascular: denies: chest pain, palpitations Endocrine: no symptoms reported Gastrointestinal: denies: abdominal pain, nausea, diarrhea Genitourinary: denies: urgency, dysuria, discharge Musculoskeletal: denies: back pain, joint swelling, arthralgia Skin: denies: rash, lesions Neurological: denies: headache, weakness, paresthesias Psychiatric: denies: anxiety, depression Hematological/Lymphatic: as per HPI ED Past Medical Hx - Past Medical History Previous Medical History?: Yes Additional medical history: Abnormal uterine bleeding., Uterine fibroid,. Morbid Obesity - Surgical History Past Surgical History?: Yes Additional Surgical History: C section x 2 - Social History Smoking Status: Never Smoker Substance Use Type: None - Medications Home Medications: Home Medications Medication Instructions Recorded Confirmed Last Taken Type Fluconazole (Nf) [Diflucan TAB] 150 mg PO ONCE #1 tablet 01/23/19 Unknown Rx metroNIDAZOLE [Flagyl] 500 mg PO Q12HR #14 tab 01/23/19 Unknown Rx Cyclobenzaprine [Flexeril] 10 mg PO QHS PRN #20 tablet 03/28/19 Unknown Rx medroxyPROGESTERone ACETATE 20 mg PO QDAY #20 tablet 05/02/19 Unknown Rx [Provera] Ibuprofen [Motrin 800 MG tab] 800 mg PO Q8HR #30 tablet 05/22/19 Unknown Rx medroxyPROGESTERone ACETATE 10 mg PO QDAY 10 Days #10 tablet 05/22/19 Unknown Rx [Provera] Fluconazole [Diflucan TAB] 100 mg PO BID #2 tablet 07/02/19 Unknown Rx Ibuprofen [Motrin 800 MG tab] 800 mg PO Q8HR PRN #20 tablet 12/25/19 Unknown Rx medroxyPROGESTERone ACETATE 10 mg PO QDAY #10 tablet 12/25/19 Unknown Rx [Provera] Chlorhexidine Mouthwash [Peridex] 15 ml MM BID #1 bottle 05/09/20 Unknown Rx Clindamycin [Clindamycin CAP] 300 mg PO Q8H 7 Days #21 cap 05/09/20 Unknown Rx traMADoL [Ultram] 50 mg PO Q6HR PRN #12 tablet 05/09/20 Unknown Rx ED Physical Exam - General Limitations: No Limitations General appearance: alert, in no apparent distress - Head Head exam: Present: atraumatic, normocephalic - Eye Eye exam: Present: normal appearance, PERRL, EOMI Pupils: Present: normal accommodation - ENT ENT exam: Present: mucous membranes moist, TM's normal bilaterally, normal external ear exam - Expanded ENT Exam Expanded Mouth exam: Absent: trismus Teeth exam: Present: dental caries 1 - Dental Tenderness Throat exam: Positive: normal inspection - Neck Neck exam: Present: normal inspection, full ROM. Absent: tenderness, lymphadenopathy - Respiratory Respiratory exam: Present: normal lung sounds bilaterally, chest wall tenderness. Absent: respiratory distress, wheezes, stridor - Cardiovascular Cardiovascular Exam: Present: regular rate, normal rhythm, normal heart sounds. Absent: systolic murmur, diastolic murmur, rubs, gallop - GI/Abdominal GI/Abdominal exam: Present: soft, normal bowel sounds - Rectal Rectal exam: Present: deferred - Extremities Exam Extremities exam: Present: normal inspection, full ROM. Absent: tenderness - Back Exam Back exam: Present: normal inspection - Neurological Exam Neurological exam: Present: alert, oriented X3, CN II-XII intact, normal gait - Psychiatric Psychiatric exam: Present: normal affect - Skin Skin exam: Present: warm, dry, intact, normal color. Absent: rash ED Course Vital Signs 05/09/20 04:58 Temperature 98.3 F Pulse Rate 112 H Respiratory 18 Rate Blood Pressure 147/104 O2 Sat by Pulse 98 Oximetry ED Medical Decision Making - Medical Decision Making This is infected dental caries patient is penicillin allergic. Plan for clindamycin p.o., NSAIDs PRN for pain follow-up with dentist in 3 days as scheduled patient verbalizes agreement and understanding with discharge plan. Patient DC'd home in stable condition at this time Critical care attestation.: If time is entered above; I have spent that time in minutes in the direct care of this critically ill patient, excluding procedure time. ED Disposition Clinical Impression: Infected dental carries Disposition: DC-01 TO HOME OR SELFCARE Is pt being admited?: No Does the pt Need Aspirin: No Condition: Good Instructions: Toothache (ED), Dental Caries (ED) Prescriptions: Clindamycin [Clindamycin CAP] 300 mg PO Q8H 7 Days #21 cap Chlorhexidine Mouthwash [Peridex] 15 ml MM BID #1 bottle traMADoL [Ultram] 50 mg PO Q6HR PRN #12 tablet PRN Reason: Pain Referrals: TABBY HARRISON MD [Primary Care Provider] - 3-5 Days [facility] [Outside] - 3-5 Days Forms: Work/School Release Form(ED) Time of Disposition: 06:35
== END 2020-05-09 06:44 | disposition home or self-care (01) ==
LOC: ED 04:53
DX: K02.9 Dental caries, unspecified (principal); Z98.890 Other specified postprocedural states; Z79.1 Long term (current) use of non-steroidal anti-inflammatories (NSAID); Z79.899 Other long term (current) drug therapy; Z88.0 Allergy status to penicillin
CPT/HCPCS: 99281; 99282

== ENCOUNTER 2020-05-10 18:15 | Emergency (ER) | payer BC ==
[2020-05-10] MEDS ORDERED: FAMOTIDINE 20 MG/2 ML INJ IV ONE (19:00)
[2020-05-10] MEDS ORDERED: dexAMETHasone 20 MG/5 ML VIAL IV ONE (19:00)
--- NOTE | 2020-05-10 19:08 | Emergency Department Report ---
HPI - General Chief Complaint: Allergic Reaction PUI?: No Time Seen by Provider: 05/10/20 18:50 - HPI HPI: Room 5 The patient is a 29-year-old female present with a chief complaint of allergic reaction. Patient states her symptoms began approximate 1 week ago with pain at tooth #32 in the right ear and right jaw. Patient states she came to the ED yesterday and was given prescription for antibiotics and chlorhexidine rinse. Patient states she has an appointment to see her dentist so she took her medication last night and then felt as though her throat was closing and her tongue was swelling. Patient came to the ED and was given steroids and prescription for more medication to go home with. Patient states she felt b roseanne at discharge and felt better earlier today. The patient stated when she went fishing she again felt as though her throat was closing so she took a Benadryl and 1 of her prednisone tablets (20 mg). Patient states her symptoms improved but again return later this afternoon. Patient states she took another dose of prednisone and Benadryl and came to the emergency department. Patient states he still feels as though her throat is closing ED Past Medical Hx - Past Medical History Additional medical history: Abnormal uterine bleeding., Uterine fibroid,. Morbid Obesity - Surgical History Past Surgical History?: No Additional Surgical History: C section x 2 - Family History Family history: no significant - Social History Smoking Status: Current Some Day Smoker Substance Use Type: None (Denies illicit drug use) - Medications Home Medications: Home Medications Medication Instructions Recorded Confirmed Last Taken Type Fluconazole (Nf) [Diflucan TAB] 150 mg PO ONCE #1 tablet 01/23/19 Unknown Rx metroNIDAZOLE [Flagyl] 500 mg PO Q12HR #14 tab 01/23/19 Unknown Rx Cyclobenzaprine [Flexeril] 10 mg PO QHS PRN #20 tablet 03/28/19 Unknown Rx medroxyPROGESTERone ACETATE 20 mg PO QDAY #20 tablet 05/02/19 Unknown Rx [Provera] Ibuprofen [Motrin 800 MG tab] 800 mg PO Q8HR #30 tablet 05/22/19 Unknown Rx medroxyPROGESTERone ACETATE 10 mg PO QDAY 10 Days #10 tablet 05/22/19 Unknown Rx [Provera] Fluconazole [Diflucan TAB] 100 mg PO BID #2 tablet 07/02/19 Unknown Rx Ibuprofen [Motrin 800 MG tab] 800 mg PO Q8HR PRN #20 tablet 12/25/19 Unknown Rx medroxyPROGESTERone ACETATE 10 mg PO QDAY #10 tablet 12/25/19 Unknown Rx [Provera] Chlorhexidine Mouthwash [Peridex] 15 ml MM BID #1 bottle 05/09/20 Unknown Rx Clindamycin [Clindamycin CAP] 300 mg PO Q8H 7 Days #21 cap 05/09/20 Unknown Rx Ketorolac [Toradol] 10 mg PO Q6H PRN #12 tablet 05/09/20 Unknown Rx diphenhydrAMINE [Benadryl CAP] 50 mg PO Q8HR #10 capsule 05/09/20 Unknown Rx predniSONE [Deltasone] 20 mg PO QDAY #5 tab 05/09/20 Unknown Rx traMADoL [Ultram] 50 mg PO Q6HR PRN #12 tablet 05/09/20 Unknown Rx EPINEPHrine [Epipen 2-Samir] 0.3 mg IM ONCE PRN #0.6 ml 05/10/20 Unknown Rx Famotidine [Pepcid] 20 mg PO BID #6 tablet 05/10/20 Unknown Rx HYDROcodone/APAP 5-325 [[place] 1 each PO Q6HR PRN #7 tablet 05/10/20 Unknown Rx 5/325] Prednisone [predniSONE 10 mg 10 mg PO .TAPER #1 tab.ds.pk 05/10/20 Unknown Rx (6-Day Pack, 21 Tabs)] diphenhydrAMINE [Benadryl CAP] 50 mg PO Q6HR #24 capsule 05/10/20 Unknown Rx ED Review of Systems ROS: Stated complaint: THROAT CLOSING Other details as noted in HPI Constitutional: no symptoms reported ENT: throat pain, dental pain Respiratory: no symptoms reported Physical Exam - Physical Exam Vital Signs: Vital Signs 05/10/20 18:25 Temperature 97.9 F Pulse Rate 101 H Respiratory 18 Rate Blood Pressure 123/100 [Left] O2 Sat by Pulse 100 Oximetry Physical Exam: GENERAL: The patient is well-developed well-nourished female sitting on stretcher not appearing to be in acute distress. [] HEENT: Normocephalic. Atraumatic. Extraocular motions are intact. Patient has moist mucous membranes. Patient complains of tenderness at tooth #32. No gingival erythema or swelling appreciated. No sublingual brawny edema appreciated NECK: Supple. Trachea midline. No stridor CHEST/LUNGS: Clear to auscultation. There is no respiratory distress noted. HEART/CARDIOVASCULAR: Regular. There is no tachycardia. There is no gallop rub or murmur. ABDOMEN: Abdomen is soft, nontender. Patient has normal bowel sounds. There is no abdominal distention. SKIN: There is no rash. There is no edema. There is no diaphoresis. NEURO: The patient is awake, alert, and oriented. The patient is cooperative. The patient has normal speech MUSCULOSKELETAL:There is no evidence of acute injury. ED Course Vital Signs 05/10/20 18:25 Temperature 97.9 F Pulse Rate 101 H Respiratory 18 Rate Blood Pressure 123/100 [Left] O2 Sat by Pulse 100 Oximetry ED Medical Decision Making - Lab Data Result diagrams: 05/10/20 19:08 05/10/20 19:08 - Radiology Data Radiology results: report reviewed (CT neck), image reviewed (CT neck) [place] [address] Cat Scan Report Signed Patient: KEVIN JENKINS MR#: [id number] : [birth year] Acct:[id number] Age/Sex: 29 / F ADM Date: 05/10/20 Loc: ED Attending Dr: Ordering Physician: NANCI HUTCHINS MD Date of Service: 05/10/20 Procedure(s): CT neck w con Accession Number(s): [id number] cc: NANCI HUTCHINS MD CT NECK WITH INTRAVENOUS CONTRAST AND MULTIPLANAR RECONSTRUCTION CLINICAL HISTORY: Pain TECHNIQUE: 2.5 mm thick contiguous axial scans were obtained from the skull base down to the aortic arch during intravenous contrast administration. In addition to evaluation of axial source images sagittal and coronal multiplanar reconstructions were produced and reviewed for this report. All CT imaging studies performed at this facility utilize dose modulation, iterative reconstruction or weight based dosing, if appropriate, to obtain the lowest achievable radiation dose. FINDINGS: Dental caries are observed at tooth #12, 13, 18 and 29. Tooth 5 is absent. There is no imaging findings to suggest the presence of significant periodontal disease. No indication of periapical abscess is observed. There is no indication of inflammatory or infectious process adjacent to the mandible or maxilla. Oral cavity, tongue and floor of mouth have an unremarkable appearance. No abnormalities are seen along the course of the airway. Nasopharynx, oropharynx, hypopharynx, larynx and visualized portions of the subglottic airway all have an unremarkable appearance. There is no indication of cervical lymphadenopathy. No abnormalities are seen in evaluation of the oral cavity and tongue. The floor the mouth has a normal appearance. The parotid and submandibular salivary glands have a normal appearance. The paranasal sinuses are free from inflammatory mucosal disease. Evaluation of the orbits reveals no abnormality. The thyroid gland is normal in size and homogeneous in attenuation. No focal thyroid lesions are identified. Evaluation of the cervical spine is remarkable for mild anterior osteophyte formation at the C4-5, C5-6 and C6-7 levels. Central spinal canal and neuroforamina are adequ ately maintained. Evaluation of the lung apices reveals no abnormality. There is no indication of lung nodule or infiltrate. The visualized portions of the superior mediastinum have an unremarkable appearance. Enhancement of normal vascular structures is demonstrated. No areas of abnormal contrast enhancement are identified. IMPRESSION: 1. Several dental caries are identified as described above. There is no imaging finding to suggest the presence of significant periodontal disease or periapical abscess. There is no indication of infection or inflammation adjacent to the mandible or maxilla. Signer Name: Charbel Ornelas MD Signed: 05/10/2020 8:31 PM Workstation Name: [id number] Transcribed By: Dictated By: Charbel Ornelas MD Electronically Authenticated By: Charbel Ornelas MD Signed Date/Time: 05/10/202030 DD/ 15 TD/TT: - Differential Diagnosis Anxiety, allergic reaction, Yon's angina, Critical care attestation.: If time is entered above; I have spent that time in minutes in the direct care of this critically ill patient, excluding procedure time. ED Disposition Clinical Impression: Acute allergic reaction, Infected dental carries Disposition: - TO HOME OR SELFCARE Is pt being admited?: No Does the pt Need Aspirin: No Condition: Stable Instructions: Anaphylaxis (ED), Antibiotic Medication Allergy (ED) Additional Instructions: Return to the emergency department should you develop worsening symptoms, inability to tolerate food or liquids, high fever or any other concerns Prescriptions: diphenhydrAMINE [Benadryl CAP] 50 mg PO Q6HR #24 capsule EPINEPHrine [Epipen 2-Samir] 0.3 mg IM ONCE PRN #0.6 ml PRN Reason: Anaphylaxis HYDROcodone/APAP 5-325 [[place] 5/325] 1 each PO Q6HR PRN #7 tablet PRN Reason: Pain Famotidine [Pepcid] 20 mg PO BID #6 tablet Prednisone [predniSONE 10 mg (6-Day Pack, 21 Tabs)] 10 mg PO .TAPER #1 tab.ds.pk Referrals: PRIMARY CARE, [Primary Care Provider] - 3-5 Days [facility] [Outside] - 3-5 Days Time of Disposition: 20:45
[2020-05-10 19:16] LABS: Basophils % (Auto) 0.4 % (0.0-1.8); Eosinophils % (Auto) 0.1 % (0.0-4.3); Hematocrit 33.6 % (30.3-42.9); Hemoglobin 10.7 gm/dl (10.1-14.3); Lymphocytes # (Auto) 1.5 K/mm3 (1.2-5.4); Lymphocytes % (Auto) 13.7 % (13.4-35.0); Mean Corpuscular HGB Conc 32 % (30-34); Mean Corpuscular Volume 82 fl (79-97); Monocytes # (Auto) 0.6 K/mm3 (0.0-0.8); Monocytes % (Auto) 5.5 % (0.0-7.3); Platelet Count 276 K/mm3 (140-440); Red Blood Count 4.09 M/mm3 (3.65-5.03); Red Cell Distribution Width 19.3 % (13.2-15.2)
[2020-05-10 19:30] LABS: BUN/Creatinine Ratio 13; Blood Urea Nitrogen 10 mg/dL (7-17); Calcium 8.8 mg/dL (8.4-10.2)
--- NOTE | 2020-05-10 20:36 | Cat Scan Report ---
CT NECK WITH INTRAVENOUS CONTRAST AND MULTIPLANAR RECONSTRUCTION CLINICAL HISTORY: Pain TECHNIQUE: 2.5 mm thick contiguous axial scans were obtained from the skull base down to the aortic arch during intravenous contrast administration. In addition to evaluation of axial source images sagittal and co radha multiplanar reconstructions were produced and reviewed for this report. All CT imaging studies performed at this facility utilize dose modulation, iterative reconstruction o r weight based dosing, if appropriate, to obtain the lowest achievable radiation dose. FINDINGS: Dental caries are observed at tooth #12, 13, 18 and 29. Tooth 5 is absent. There is no imag ing findings to suggest the presence of significant periodontal disease. No indication of periapical abscess is observed. There is no indication of inflammatory or infectious process adjacent to the man dible or maxilla. Oral cavity, tongue and floor of mouth have an unremarkable appearance. No abnormalities are seen along the course of the airway. Nasopharynx, oropharynx, hypopharynx, laryn x and visualized portions of the subglottic airway all have an unremarkable appearance. There is no indication of cervical lymphadenopathy. No abnormalities are seen in evaluation of the oral cavity and tongue. The floor the mouth has a norm al appearance. The parotid and submandibular salivary glands have a normal appearance. The paranasal sinuses are free from inflammatory mucosal disease. Evaluation of the orbits reveals no abnormality. The thyroid gland is normal in size and homogeneous in attenuation. No focal thyroid lesions are iden tified. Evaluation of the cervical spine is remarkable for mild anterior osteophyte formation at the C4-5, C5 -6 and C6-7 levels. Central spinal canal and neuroforamina are adequately maintained. Evaluation of t he lung apices reveals no abnormality. There is no indication of lung nodule or infiltrate. The visua lized portions of the superior mediastinum have an unremarkable appearance. Enhancement of normal vascular structures is demonstrated. No areas of abnormal contrast enhancement are identified. IMPRESSION: 1. Several dental caries are identified as described above. There is no imaging finding to suggest th e presence of significant periodontal disease or periapical abscess. There is no indication of infect ion or inflammation adjacent to the mandible or maxilla. Signer Name: Charbel Ornelas MD Signed: 05/10/2020 8:31 PM Workstation Name: [id number]
[2020-05-10 21:16] VITALS: BP 146/101
== END 2020-05-10 21:14 | disposition home or self-care (01) ==
LOC: ED 18:15
DX: T78.40XA Allergy, unspecified, initial encounter (principal); K02.9 Dental caries, unspecified; K04.7 Periapical abscess without sinus; F17.200 Nicotine dependence, unspecified, uncomplicated; Y92.89 Other specified places as the place of occurrence of the external cause
CPT/HCPCS: 36415; 70491; 80048; 84703; 85025; 96374; 96375; 99284; J1100; Q9967

== ENCOUNTER 2020-05-11 22:17 | Emergency (ER) | payer BC ==
[2020-05-11 22:30] VITALS: BP 188/97
--- NOTE | 2020-05-11 22:37 | Emergency Department Report ---
ED General Adult HPI - General Chief complaint: Allergic Reaction Stated complaint: SWOLLEN TONGUE PUI?: No Time Seen by Provider: 05/11/20 22:35 Source: patient, RN notes reviewed Mode of arrival: Ambulatory Limitations: No Limitations - History of Present Illness Initial comments: Patient is a 29-year-old female who is not known to myself previously. She was recently seen here and evaluated for dental caries. She was started on clindamycin, chlorhexidine, and tramadol Shortly after starting this medicines, she re presented with a possible allergic reaction. She was treated supportively and symptomatically and discharged. She represented a day later, and had a work-up performed, including a CT scan of the neck, which was negative for acute pathology, and only demonstrated known dental caries. Patient has been taking famotidine, steroids, Benadryl as directed. She has not required use of epinephrine pen. She has follow-up with a dentist tomorrow. She presents to the ER with a complaint of pain in her tongue and subjective swelling. Denies headache, neck pain, chest pain, abdominal pain, shortness of breath, dysphonia. Symptoms improved after taking Benadryl, steroids, and famotidine. -: Sudden Location: mouth Consistency: now resolved Improves with: medication Worsens with: none - Related Data Previous Rx's Medication Instructions Recorded Last Taken Type Fluconazole (Nf) [Diflucan TAB] 150 mg PO ONCE #1 tablet 01/23/19 Unknown Rx metroNIDAZOLE [Flagyl] 500 mg PO Q12HR #14 tab 01/23/19 Unknown Rx Cyclobenzaprine [Flexeril] 10 mg PO QHS PRN #20 tablet 03/28/19 Unknown Rx medroxyPROGESTERone ACETATE 20 mg PO QDAY #20 tablet 05/02/19 Unknown Rx [Provera] Ibuprofen [Motrin 800 MG tab] 800 mg PO Q8HR #30 tablet 05/22/19 Unknown Rx medroxyPROGESTERone ACETATE 10 mg PO QDAY 10 Days #10 tablet 05/22/19 Unknown Rx [Provera] Fluconazole [Diflucan TAB] 100 mg PO BID #2 tablet 07/02/19 Unknown Rx Ibuprofen [Motrin 800 MG tab] 800 mg PO Q8HR PRN #20 tablet 12/25/19 Unknown Rx medroxyPROGESTERone ACETATE 10 mg PO QDAY #10 tablet 12/25/19 Unknown Rx [Provera] Chlorhexidine Mouthwash [Peridex] 15 ml MM BID #1 bottle 05/09/20 Unknown Rx Clindamycin [Clindamycin CAP] 300 mg PO Q8H 7 Days #21 cap 05/09/20 Unknown Rx Ketorolac [Toradol] 10 mg PO Q6H PRN #12 tablet 05/09/20 Unknown Rx diphenhydrAMINE [Benadryl CAP] 50 mg PO Q8HR #10 capsule 05/09/20 Unknown Rx predniSONE [Deltasone] 20 mg PO QDAY #5 tab 05/09/20 Unknown Rx traMADoL [Ultram] 50 mg PO Q6HR PRN #12 tablet 05/09/20 Unknown Rx EPINEPHrine [Epipen 2-Samir] 0.3 mg IM ONCE PRN #0.6 ml 05/10/20 Unknown Rx Famotidine [Pepcid] 20 mg PO BID #6 tablet 05/10/20 Unknown Rx HYDROcodone/APAP 5-325 [[place] 1 each PO Q6HR PRN #7 tablet 05/10/20 Unknown Rx 5/325] Prednisone [predniSONE 10 mg 10 mg PO .TAPER #1 tab.ds.pk 05/10/20 Unknown Rx (6-Day Pack, 21 Tabs)] diphenhydrAMINE [Benadryl CAP] 50 mg PO Q6HR #24 capsule 05/10/20 Unknown Rx Allergies Allergy/AdvReac Type Severity Reaction Status Date / Time Penicillins Allergy Unknown Verified 05/10/20 18:17 ED Review of Systems ROS: Stated complaint: SWOLLEN TONGUE Other details as noted in HPI Constitutional: denies: fever ENT: dental pain, other Respiratory: denies: cough, shortness of breath Cardiovascular: denies: chest pain Gastrointestinal: denies: abdominal pain ED Past Medical Hx - Past Medical History Previous Medical History?: Yes Additional medical history: Abnormal uterine bleeding., Uterine fibroid,. Morbid Obesity - Surgical History Past Surgical History?: Yes Additional Surgical History: C section x 2 - Social History Smoking Status: Never Smoker Substance Use Type: None - Medications Home Medications: Home Medications Medication Instructions Recorded Confirmed Last Taken Type Fluconazole (Nf) [Diflucan TAB] 150 mg PO ONCE #1 tablet 01/23/19 Unknown Rx metroNIDAZOLE [Flagyl] 500 mg PO Q12HR #14 tab 01/23/19 Unknown Rx Cyclobenzaprine [Flexeril] 10 mg PO QHS PRN #20 tablet 03/28/19 Unknown Rx medroxyPROGESTERone ACETATE 20 mg PO QDAY #20 tablet 05/02/19 Unknown Rx [Provera] Ibuprofen [Motrin 800 MG tab] 800 mg PO Q8HR #30 tablet 05/22/19 Unknown Rx medroxyPROGESTERone ACETATE 10 mg PO QDAY 10 Days #10 tablet 05/22/19 Unknown Rx [Provera] Fluconazole [Diflucan TAB] 100 mg PO BID #2 tablet 07/02/19 Unknown Rx Ibuprofen [Motrin 800 MG tab] 800 mg PO Q8HR PRN #20 tablet 12/25/19 Unknown Rx medroxyPROGESTERone ACETATE 10 mg PO QDAY #10 tablet 12/25/19 Unknown Rx [Provera] Chlorhexidine Mouthwash [Peridex] 15 ml MM BID #1 bottle 05/09/20 Unknown Rx Clindamycin [Clindamycin CAP] 300 mg PO Q8H 7 Days #21 cap 05/09/20 Unknown Rx Ketorolac [Toradol] 10 mg PO Q6H PRN #12 tablet 05/09/20 Unknown Rx diphenhydrAMINE [Benadryl CAP] 50 mg PO Q8HR #10 capsule 05/09/20 Unknown Rx predniSONE [Deltasone] 20 mg PO QDAY #5 tab 05/09/20 Unknown Rx traMADoL [Ultram] 50 mg PO Q6HR PRN #12 tablet 05/09/20 Unknown Rx EPINEPHrine [Epipen 2-Samir] 0.3 mg IM ONCE PRN #0.6 ml 05/10/20 Unknown Rx Famotidine [Pepcid] 20 mg PO BID #6 tablet 05/10/20 Unknown Rx HYDROcodone/APAP 5-325 [[place] 1 each PO Q6HR PRN #7 tablet 05/10/20 Unknown Rx 5/325] Prednisone [predniSONE 10 mg 10 mg PO .TAPER #1 tab.ds.pk 05/10/20 Unknown Rx (6-Day Pack, 21 Tabs)] diphenhydrAMINE [Benadryl CAP] 50 mg PO Q6HR #24 capsule 05/10/20 Unknown Rx ED Physical Exam - General Limitations: No Limitations General appearance: alert, in no apparent distress - Head Head exam: Present: atraumatic, normocephalic - Eye Eye exam: Present: normal appearance, PERRL, EOMI. Absent: nystagmus - ENT ENT exam: Present: normal exam, normal orophraynx, mucous membranes moist, normal external ear exam, other (There is no stridor. There is no dysphonia. There is no swelling of the tongue. There is no elevation of the base of the tongue. There is no deviation of the uvula. The patient is speaking in full sentences.) - Neck Neck exam: Present: normal inspection, full ROM. Absent: tenderness, meningismus - Respiratory Respiratory exam: Present: normal lung sounds bilaterally. Absent: respiratory distress - Cardiovascular Cardiovascular Exam: Present: regular rate, normal rhythm, normal heart sounds. Absent: bradycardia, tachycardia, irregular rhythm, systolic murmur, diastolic murmur, rubs, gallop - GI/Abdominal GI/Abdominal exam: Present: soft, normal bowel sounds. Absent: distended, tenderness, guarding, rebound, rigid, pulsatile mass - Extremities Exam Extremities exam: Present: normal inspection, full ROM, other (2+ pulses noted in the bilateral upper and lower extremities. There is no palpable cord. negative Homans sign. Muscular compartments are soft. The pelvis is stable.). Absent: pedal edema, calf tenderness - Back Exam Back exam: Present: normal inspection, full ROM. Absent: tenderness, CVA tenderness (R), CVA tenderness (L), paraspinal tenderness, vertebral tenderness - Neurological Exam Neurological exam: Present: alert, normal gait, other (No facial droop. Tongue midline. Extraocular movements intact bilaterally. Facial sensation intact to light touch in V1, V2, V3 distribution bilaterally. 5 and a 5 strength in 4 extremities. Sensation intact to light touch in 4 extremities.). Absent: motor sensory deficit - Psychiatric Psychiatric exam: Present: anxious - Skin Skin exam: Present: warm, dry, intact, normal color. Absent: rash ED Course Vital Signs 05/11/20 22:25 Temperature 98.6 F Pulse Rate 83 Respiratory 18 Rate Blood Pressure 188/97 O2 Sat by Pulse 98 Oximetry ED Medical Decision Making - Lab Data Vital Signs 05/11/20 22:25 Temperature 98.6 F Pulse Rate 83 Respiratory 18 Rate Blood Pressure 188/97 O2 Sat by Pulse 98 Oximetry - Radiology Data Radiology results: report reviewed, image reviewed Print Report Referring Physician: NANCI HUTCHINS Patient Name: KEVIN JENKINS Date of : 1990 Sex: Female Report Date: 2020-05-10 Report Status: Finalized Findings [facility] [address] [place] [address] Cat Scan Report Signed Patient: KEVIN JENKINS MR#: [id number] : 1990 Acct:[id number] Age/Sex: 29 / F ADM Date: 05/10/20 Loc: ED Attending Dr: Ordering Physician: NANCI HUTCHINS MD Date of Service: 05/10/20 Procedure(s): CT neck w con Accession Number(s): [id number] cc: NANCI HUTCHINS MD CT NECK WITH INTRAVENOUS CONTRAST AND MULTIPLANAR RECONSTRUCTION CLINICAL HISTORY: Pain TECHNIQUE: 2.5 mm thick contiguous axial scans were obtained from the skull base down to the aortic arch during intravenous contrast administration. In addition to evaluation of axial source images sagittal and coronal multiplanar reconstructions were produced and reviewed for this report. All CT imaging studies performed at this facility utilize dose modulation, iterative reconstruction or weight based dosing, if appropriate, to obtain the lowest achievable radiation dose. FINDINGS: Dental caries are observed at tooth #12, 13, 18 and 29. Tooth 5 is absent. There is no imaging findings to suggest the presence of significant periodontal disease. No indication of periapical abscess is observed. There is no indication of inflammatory or infectious process adjacent to the mandible or maxilla. Oral cavity, tongue and floor of mouth have an unremarkable appearance. No abnormalities are seen along the course of the airway. Nasopharynx, oropharynx, hypopharynx, larynx and visualized portions of the subglottic airway all have an unremarkable appearance. There is no indication of cervical lymphadenopathy. No abnormalities are seen in evaluation of the oral cavity and tongue. The floor the mouth has a normal appearance. The parotid and submandibular salivary glands have a normal appearance. The paranasal sinuses are free from inflammatory mucosal disease. Evaluation of the orbits reveals no abnormality. The thyroid gland is normal in size and homogeneous in attenuation. No focal thyroid lesions are identified. Evaluation of the cervical spine is remarkable for mild anterior osteophyte formation at the C4-5, C5-6 and C6-7 levels. Central spinal canal and neuroforamina are adequately maintained. Evaluation of the lung apices reveals no abnormality. There is no indication of lung nodule or infiltrate. The visualized portions of the superior mediastinum have an unremarkable appearance. Enhancement of normal vascular structures is demonstrated. No areas of abnormal contrast enhancement are identified. IMPRESSION: 1. Several dental caries are identified as described above. There is no imaging finding to suggest the presence of significant periodontal disease or periapical abscess. There is no indication of infection or inflammation adjacent to the mandible or maxilla. Signer Name: Charbel Ornelas MD Signed: 05/10/2020 8:31 PM Workstation Name: [id number] Transcribed By: Dictated By: Charbel Ornelas MD Electronically Authenticated By: Charbel Ornelas MD Signed Date/Time: 05/10/202030 DD/ 15 TD/TT: - Medical Decision Making Differential diagnosis, including but not limited to: Anxiety, general medical evaluation, chronic dental caries Assessment and plan: 29-year-old female presenting primarily for reassurance. She has follow-up with dentist tomorrow. On my assessment she is afebrile with incidental hypertension; please reference the [employer] clinical policy on hypertension which is not acutely symptomatic. She is speaking in full sentences without stridor or dysphonia, there is no swelling of the tongue, and there is no elevation of the base of the tongue. There is no pain with tracheal manipulation. Reassurance is provided to patient. She reports that she is reliable to self monitor at home with her prior prescriptions. Patient is advised to follow-up with an personal security specialist in the future to determine what medications she is and is not allergic to. She has verbalized understanding Critical care attestation.: If time is entered above; I have spent that time in minutes in the direct care of this critically ill patient, excluding procedure time. ED Disposition Clinical Impression: General medical exam, Dental caries Disposition: DC-01 TO HOME OR SELFCARE Is pt being admited?: No Does the pt Need Aspirin: No Condition: Stable Additional Instructions: Please continue current outpatient medications. Follow-up with the dentist tomorrow. Return to the emergency room right away with new, worsened or different symptoms, or symptoms not present on the initial emergency room evaluation. Please follow-up with an outpatient personal security specialist in the next 4 to 6 weeks to determine what specific agents patient is allergic to. Use the previously prescribed epinephrine pen only if patient develops inability to speak, inability to breathe, tongue swelling or neck closing. For the time being, do not take clindamycin, chlorhexidine, or tramadol. In addition, follow-up with a primary care doctor within the next 4 to 6 weeks for repeat blood pressure checkup/evaluation. Patient was found to have elevated blood pressure while here in the emergency room, and this should be followed up by an outpatient primary care doctor within the recommended timeframe Referrals: LESIA SUAREZ MD [Staff Physician] - as needed [facility] [Outside] - as needed
== END 2020-05-11 22:56 | disposition home or self-care (01) ==
LOC: ED 22:17
DX: K02.9 Dental caries, unspecified (principal); Z00.00 Encounter for general adult medical examination without abnormal findings; Z98.890 Other specified postprocedural states; Z79.1 Long term (current) use of non-steroidal anti-inflammatories (NSAID); Z79.899 Other long term (current) drug therapy; Z88.0 Allergy status to penicillin
CPT/HCPCS: 99282

== ENCOUNTER 2020-05-15 22:52 | Emergency (ER) | payer BC ==
[2020-05-16] MEDS ORDERED: LORazepam 2 MG/ML VIAL IV ONE (00:39)
[2020-05-16] MEDS ORDERED: SODIUM CHLORIDE 0.9% 1000 ML 1,000 ML IV ONE (00:39)
--- NOTE | 2020-05-16 00:43 | Emergency Department Report ---
ED General Adult HPI - General Chief complaint: Allergic Reaction Stated complaint: THROAT SWELLING Time Seen by Provider: 05/16/20 00:31 Source: patient Mode of arrival: Ambulatory Limitations: No Limitations - History of Present Illness Initial comments: Patient is 29 years old female with no significant past medical history. Patient presented to the ER stating that she feels that her throat is closing on her. This is the patient third visit for the same complaint. Patient symptoms started after patient was given tramadol and clindamycin for dental caries. Patient is very anxious and crying in tears however patient vital signs stable including oxygen saturation of 100% and an oropharyngeal exam showed no evidence of airway compromise with clear uvula and throat. Patient had a CT neck 3 days ago and came back negative for acute finding. - Related Data Previous Rx's Medication Instructions Recorded Last Taken Type Fluconazole (Nf) [Diflucan TAB] 150 mg PO ONCE #1 tablet 01/23/19 Unknown Rx metroNIDAZOLE [Flagyl] 500 mg PO Q12HR #14 tab 01/23/19 Unknown Rx Cyclobenzaprine [Flexeril] 10 mg PO QHS PRN #20 tablet 03/28/19 Unknown Rx medroxyPROGESTERone ACETATE 20 mg PO QDAY #20 tablet 05/02/19 Unknown Rx [Provera] Ibuprofen [Motrin 800 MG tab] 800 mg PO Q8HR #30 tablet 05/22/19 Unknown Rx medroxyPROGESTERone ACETATE 10 mg PO QDAY 10 Days #10 tablet 05/22/19 Unknown Rx [Provera] Fluconazole [Diflucan TAB] 100 mg PO BID #2 tablet 07/02/19 Unknown Rx Ibuprofen [Motrin 800 MG tab] 800 mg PO Q8HR PRN #20 tablet 12/25/19 Unknown Rx medroxyPROGESTERone ACETATE 10 mg PO QDAY #10 tablet 12/25/19 Unknown Rx [Provera] Chlorhexidine Mouthwash [Peridex] 15 ml MM BID #1 bottle 05/09/20 Unknown Rx Clindamycin [Clindamycin CAP] 300 mg PO Q8H 7 Days #21 cap 05/09/20 Unknown Rx Ketorolac [Toradol] 10 mg PO Q6H PRN #12 tablet 05/09/20 Unknown Rx diphenhydrAMINE [Benadryl CAP] 50 mg PO Q8HR #10 capsule 05/09/20 Unknown Rx predniSONE [Deltasone] 20 mg PO QDAY #5 tab 05/09/20 Unknown Rx traMADoL [Ultram] 50 mg PO Q6HR PRN #12 tablet 05/09/20 Unknown Rx EPINEPHrine [Epipen 2-Samir] 0.3 mg IM ONCE PRN #0.6 ml 05/10/20 Unknown Rx Famotidine [Pepcid] 20 mg PO BID #6 tablet 05/10/20 Unknown Rx HYDROcodone/APAP 5-325 [[place] 1 each PO Q6HR PRN #7 tablet 05/10/20 Unknown Rx 5/325] Prednisone [predniSONE 10 mg 10 mg PO .TAPER #1 tab.ds.pk 05/10/20 Unknown Rx (6-Day Pack, 21 Tabs)] diphenhydrAMINE [Benadryl CAP] 50 mg PO Q6HR #24 capsule 05/10/20 Unknown Rx ALPRAZolam [Xanax TAB] 0.5 mg PO TID PRN #9 tab 05/16/20 Unknown Rx Allergies Allergy/AdvReac Type Severity Reaction Status Date / Time lidocaine Allergy Swelling Verified 05/15/20 23:26 Penicillins Allergy Unknown Verified 05/10/20 18:17 tramadol Allergy Swelling Verified 05/15/20 23:26 ED Review of Systems ROS: Stated complaint: THROAT SWELLING Other details as noted in HPI Comment: All other systems reviewed and negative Constitutional: denies: chills, fever Respiratory: denies: cough, shortness of breath, SOB with exertion, SOB at rest Cardiovascular: denies: chest pain, palpitations Gastrointestinal: denies: abdominal pain, nausea, vomiting Musculoskeletal: denies: back pain Neurological: denies: headache, weakness Psychiatric: anxiety ED Past Medical Hx - Past Medical History Previous Medical History?: Yes Additional medical history: Abnormal uterine bleeding., Uterine fibroid,. Morbid Obesity - Surgical History Past Surgical History?: Yes Additional Surgical History: C section x 2 - Social History Smoking Status: Never Smoker - Medications Home Medications: Home Medications Medication Instructions Recorded Confirmed Last Taken Type Fluconazole (Nf) [Diflucan TAB] 150 mg PO ONCE #1 tablet 01/23/19 Unknown Rx metroNIDAZOLE [Flagyl] 500 mg PO Q12HR #14 tab 01/23/19 Unknown Rx Cyclobenzaprine [Flexeril] 10 mg PO QHS PRN #20 tablet 03/28/19 Unknown Rx medroxyPROGESTERone ACETATE 20 mg PO QDAY #20 tablet 05/02/19 Unknown Rx [Provera] Ibuprofen [Motrin 800 MG tab] 800 mg PO Q8HR #30 tablet 05/22/19 Unknown Rx medroxyPROGESTERone ACETATE 10 mg PO QDAY 10 Days #10 tablet 05/22/19 Unknown Rx [Provera] Fluconazole [Diflucan TAB] 100 mg PO BID #2 tablet 07/02/19 Unknown Rx Ibuprofen [Motrin 800 MG tab] 800 mg PO Q8HR PRN #20 tablet 12/25/19 Unknown Rx medroxyPROGESTERone ACETATE 10 mg PO QDAY #10 tablet 12/25/19 Unknown Rx [Provera] Chlorhexidine Mouthwash [Peridex] 15 ml MM BID #1 bottle 05/09/20 Unknown Rx Clindamycin [Clindamycin CAP] 300 mg PO Q8H 7 Days #21 cap 05/09/20 Unknown Rx Ketorolac [Toradol] 10 mg PO Q6H PRN #12 tablet 05/09/20 Unknown Rx diphenhydrAMINE [Benadryl CAP] 50 mg PO Q8HR #10 capsule 05/09/20 Unknown Rx predniSONE [Deltasone] 20 mg PO QDAY #5 tab 05/09/20 Unknown Rx traMADoL [Ultram] 50 mg PO Q6HR PRN #12 tablet 05/09/20 Unknown Rx EPINEPHrine [Epipen 2-Samir] 0.3 mg IM ONCE PRN #0.6 ml 05/10/20 Unknown Rx Famotidine [Pepcid] 20 mg PO BID #6 tablet 05/10/20 Unknown Rx HYDROcodone/APAP 5-325 [[place] 1 each PO Q6HR PRN #7 tablet 05/10/20 Unknown Rx 5/325] Prednisone [predniSONE 10 mg 10 mg PO .TAPER #1 tab.ds.pk 05/10/20 Unknown Rx (6-Day Pack, 21 Tabs)] diphenhydrAMINE [Benadryl CAP] 50 mg PO Q6HR #24 capsule 05/10/20 Unknown Rx ALPRAZolam [Xanax TAB] 0.5 mg PO TID PRN #9 tab 05/16/20 Unknown Rx ED Physical Exam - General Limitations: No Limitations General appearance: alert, in no apparent distress, anxious - Head Head exam: Present: atraumatic, normocephalic, normal inspection - Eye Eye exam: Present: normal appearance, PERRL - ENT ENT exam: Present: normal exam, normal orophraynx, mucous membranes moist - Neck Neck exam: Present: normal inspection, full ROM. Absent: tenderness, meningismus, lymphadenopathy, thyromegaly - Respiratory Respiratory exam: Present: normal lung sounds bilaterally - Cardiovascular Cardiovascular Exam: Present: regular rate, normal rhythm, normal heart sounds - GI/Abdominal GI/Abdominal exam: Present: soft, normal bowel sounds. Absent: distended, tenderness, guarding, rebound, rigid, organomegaly, mass, bruit, pulsatile mass, hernia - Extremities Exam Extremities exam: Present: normal inspection, full ROM, normal capillary refill. Absent: tenderness, pedal edema, joint swelling - Back Exam Back exam: Present: normal inspection, full ROM. Absent: CVA tenderness (R), CVA tenderness (L) - Neurological Exam Neurological exam: Present: alert, oriented X3, CN II-XII intact, normal gait, reflexes normal. Absent: motor sensory deficit - Psychiatric Psychiatric exam: Present: anxious - Skin Skin exam: Present: warm, intact, normal color ED Course Vital Signs 05/15/20 05/16/20 23:02 02:48 Temperature 98.1 F Pulse Rate 96 H 77 Respiratory 20 18 Rate Blood Pressure 180/95 Blood Pressure 160/75 [Left] O2 Sat by Pulse 98 99 Oximetry Critical care attestation.: If time is entered above; I have spent that time in minutes in the direct care of this critically ill patient, excluding procedure time. ED Disposition Clinical Impression: Panic attack Disposition: DC-01 TO HOME OR SELFCARE Is pt being admited?: No Condition: Stable Prescriptions: ALPRAZolam [Xanax TAB] 0.5 mg PO TID PRN #9 tab PRN Reason: Anxiety Referrals: TABBY HARRISON MD [Primary Care Provider] - 3-5 Days
[2020-05-16 02:49] VITALS: BP 160/75
== END 2020-05-16 02:49 | disposition home or self-care (01) ==
LOC: ED 22:52
DX: F41.0 Panic disorder [episodic paroxysmal anxiety] (principal); Z98.890 Other specified postprocedural states; Z79.1 Long term (current) use of non-steroidal anti-inflammatories (NSAID); Z79.899 Other long term (current) drug therapy; Z88.0 Allergy status to penicillin; Z88.8 Allergy status to other drugs, medicaments and biological substances
CPT/HCPCS: 96374; 99282; J2060; J7030

== ENCOUNTER 2021-01-14 11:36 | Emergency (ER) | payer BC ==
[2021-01-14 11:48] VITALS: BP 141/79
[2021-01-14] MEDS ORDERED: IBUPROFEN 800 MG TAB PO ONE (11:51)
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
== END 2021-01-14 13:30 | disposition home or self-care (01) ==
LOC: ED 11:36
DX: S16.1XXA Strain of muscle, fascia and tendon at neck level, initial encounter (principal); S29.012A Strain of muscle and tendon of back wall of thorax, initial encounter; Z98.890 Other specified postprocedural states; Z79.1 Long term (current) use of non-steroidal anti-inflammatories (NSAID); Z79.2 Long term (current) use of antibiotics; Z79.899 Other long term (current) drug therapy; Z88.0 Allergy status to penicillin; Z88.8 Allergy status to other drugs, medicaments and biological substances; V49.49XA Driver injured in collision with other motor vehicles in traffic accident, initial encounter; Y93.89 Activity, other specified; Y92.410 Unspecified street and highway as the place of occurrence of the external cause; Y99.8 Other external cause status
CPT/HCPCS: 72040